=== PATIENT | female | born 1980 | race Caucasian/White ===

== ENCOUNTER 2017-10-29 23:06 | Emergency (ER) | payer OTHER ==
[~2017-10-29] VITALS: Ht 172.7 cm; Wt 113.4 kg
[~2017-10-29 23:06] MED LIST: CEPH500 PO; CRUTCH4 USE; Crutch1 EACH MISC; ERYT.5TO RIGHTEYE; HYDACE10B PO; HYDACE5 PO; IBUP600 PO; IBUP800 PO; META800 PO; METPHE10; NAPR500 PO; Norco 10-325 T1 EACH PO; ONDA4ODT MM; OXYACE5T PO; OXYC5 PO; PROM25 PO; RXHYDACE PO; Ultram50 MG PO
[2017-10-29 23:35] LABS: Calcium, Ionized (POC) 1.09 mmol/L (1.10-1.46); Chloride (POC) 102 mmol/L (98-108); Creatinine (POC) 0.7 mg/dL (0.6-1.0); Glucose (ISTAT POC) 89 mg/dL (70-99); Hemoglobin (POC) 14.3 g/dL (12.0-16.0); Potassium (POC) 3.4 mmol/L (3.5-5.5); Sodium (POC) 140 mmol/L (135-148); Total CO2 (POC) 24 mmol/L (21-32)
== END 2017-10-29 23:42 ==
LOC: ER 23:06
PROVIDERS: Emergency Medicine
DX: R11.2 Nausea with vomiting, unspecified (principal); R10.31 Right lower quadrant pain; F17.200 Nicotine dependence, unspecified, uncomplicated
CPT/HCPCS: 80047; 81025; 85014; 99283

== ENCOUNTER 2020-09-10 03:00 | Emergency (ER) | payer SELFPAY ==
[~2020-09-10] VITALS: Ht 175.3 cm; Wt 95.2 kg
== END 2020-09-10 08:05 | disposition home or self-care (01) ==
LOC: ER 03:00
DX: S93.401A Sprain of unspecified ligament of right ankle, initial encounter (principal); X50.1XXA Overexertion from prolonged static or awkward postures, initial encounter
CPT/HCPCS: 29515; 73080; 73590; 73610; 99283-25